=== PATIENT | male | born 1985 | race Caucasian/White ===

== ENCOUNTER 2024-03-30 17:44 | Emergency (ER) | payer MEDICAID, SELFPAY ==
[2024-03-30 17:47] VITALS: BP 126/68; PULSE 96; RESP 18; TEMP 36.4; O2SAT 98
--- NOTE | 2024-03-30 18:15 | ECG_ITS ---
[facility] Test Date: 2024-03-30 Pat Name: Hermilo Dejesus Department: Room: Gender: Male Radiology Assistant: : 1985 Requested By: Dawson Cintron Order Number: [id number] Esther MD: Thania Hunter M.D. Measurements Intervals Marcy Rate: 62 P: 59 MD: 138 QRS: 58 QRSD: 90 T: 44 QT: 386 QTc: 394 Interpretive Statements SINUS RHYTHM No previous ECG available for comparison Electronically Signed On 03-30-2024 20:01:55 CDT by Thania Hunter M.D. [id number]
--- NOTE | 2024-03-30 18:16 | ED.C_ITS ---
HPI - Psych General: Chief Complaint: Psychiatric Symptoms Stated Complaint: behavior problems Time Seen by Provider: 03/30/24 17:51 History of Present Illness: HPI: Patient brought in by EMS after panic attack. Patient was being questioned by his 's fuse okay . He said he needed some place and went for a walk. His refusal and go for a walk because she was worried about him. States that this caused him to become extremely anxious, hyperventilating, and EMS was roland d by his . Subsequently EMS brought him in after talking him down. At no point was the patient suicidal or homicidal. He denies drug or alcohol use. States he drinks a large amount of caffeine per day in the form of energy drinks, sugary beverages, and coffee. Has been taking trazodone for sleeping at night but has not been taking the medicine over the last few days. Denies any physical complaints. ROS: 10 systems reviewed and otherwise unrema rkable except for those noted in HPI. Physical Exam: Triage vital signs reviewed General: No acute distress, cooperative and comfortable HEENT: Normocephalic, atraumatic, external ears normal, moist mucous membranes, PERRLA. Chest: Normal inspection, equal rise and fall, no edema Respiratory: Normal respiratory effort, no atypical respiratory sounds GI: Non-tender to palpation, non-distended, Extremities: Moving all 4 extremities easily, no deformities Neuro: No meningeal signs, motor function in the room without abnormalities, sensation intact Skin: No rashes, bruising, warm, dry Psychiatric: Extremely anxious Procedures: EKG: Rate: Normal Rhythm: Sinus Robinson: Normal variant Intervals: Normal Ischemia: No STEMI criteria MDM: Considered diagnoses include but are not limited to toxidrome, panic attack, stimulant effect, acute stress reaction, occult suicidal ideation or homicidal ideation. Vital signs nonactionable. Based on history, exam, and any results no emergent condition identified. Patient continues to deny homicidality and suicidality and multiple evaluations. EKG nonischemic nonactionable without identified evidence of electrolyte imbalance. Advised conservative management at home and cessation of all stimulant use. 50 mg Benadryl given in the ER and patient was allowed to decompress. Patient and his feel he is safe for discharge at this time. Patient educated about reasons to return to the emergency department including signs of ongoing or changing condition. Advised to make an appointment with primary care or to establish care with a primary care provider to review all results from this encounter. This note was written with assistance of dictation software. Contact author for any clarification of typos. Dawson Cintron MD Course Vital Signs: Vital signs: Vital Signs Temperature 97.6 F 03/30/24 17:47 Pulse Rate 96 03/30/24 17:47 Respiratory Rate 18 03/30/24 18:52 Blood Pressure 126/68 03/30/24 17:47 Pulse Oximetry 98 03/30/24 18:52 Oxygen Delivery Me thod Room Air 03/30/24 18:52 MDM - Psych Medical Decision Making see MDM No radiology studies performed this visit Discharge Plan Discharge Patient Disposition: Home Clinical Impression: Acute anxiety Condition: Stable Prescriptions: No Action escitalopram oxalate [Lexapro] 20 mg tablet 20 mg PO DAILY hydroxyzine HCl 25 mg tablet 25 mg PO TID Discharge Orders: Discharge ED (Routine); Ordered 03/30/24 Ordered By: Dawson Cintron Referrals: Effie Dong [Referring] - Discharge Diet: Advance as tolerated Discharge Activity: Resume usual activity Patient Instructions: Opioid Safety, Pain Management Activity Restrictions/Additional Instructions: It has been a pleasure caring for you in the emergency department. Please ensure that you follow-up with your primary care physician for review of all data obtained during this encounter including any incidental findings and laboratory values. Keep in mind that if your condition changes in any way I recommend that you return to the emergency department for repeat evaluation. Coding Level of Care Code ED Geological Sample Tester for Domo [place]
[2024-03-30] MEDS: diphenhydrAMINE 50 mg Capsule PO (18:50)
[2024-03-30 18:52] VITALS: RESP 18; O2SAT 98
[2024-03-30 20:20] VITALS: BP 121/69; PULSE 89; RESP 16; TEMP 36.4; O2SAT 99
== END 2024-03-30 20:21 | disposition home or self-care (01) ==
PROVIDERS: Emergency Provider General Practice
DX: F41.9 Anxiety disorder, unspecified (principal)
CPT/HCPCS: 93005; 99283; Q0163